=== PATIENT | female | born 1990 | race American Indian/Alaskan Native ===

== ENCOUNTER 2021-05-30 21:52 | Outpatient (CLI) | payer SELFPAY ==
[2021-05-30 22:18] VITALS: BP 134/79
== END 2021-05-30 23:07 | disposition home or self-care (01) ==
LOC: TRG 21:52 → APU 22:00 → TRG 23:07
PROVIDERS: ATTEND Obstetrics & Gynecology
DX: Z34.93 Encounter for supervision of normal pregnancy, unspecified, third trimester (principal); Z3A.38 38 weeks gestation of pregnancy
CPT/HCPCS: 59025